=== PATIENT | female | born 1990 | race Caucasian/White ===

== ENCOUNTER 2020-12-18 03:28 | Inpatient (IN) | payer OTHER ==
[~2020-12-18] VITALS: Ht 167.6 cm; Wt 100.2 kg
[2020-12-19] MEDS ORDERED: OBTREX DHA COM1 EACH (08:53)
== END 2020-12-20 13:25 | disposition home or self-care (01) | DRG 807 ==
LOC: OB/GYN 03:28 → LDR 03:28 → OB/GYN 14:42
PROVIDERS: ADMIT Obstetrics & Gynecology; ATTEND Obstetrics & Gynecology
PROC: 10E0XZZ Delivery of Products of Conception, External Approach (ICD-10-PCS; principal; 2020-12-18)
PROC: 0KQM0ZZ Repair Perineum Muscle, Open Approach (ICD-10-PCS; 2020-12-18)
PROC: 4A1HXFZ Monitoring of Products of Conception, Cardiac Rhythm, External Approach (ICD-10-PCS; 2020-12-18)
DX: O42.013 Preterm premature rupture of membranes, onset of labor within 24 hours of rupture, third trimester (principal); O70.1 Second degree perineal laceration during delivery; Z37.0 Single live birth; Z3A.36 36 weeks gestation of pregnancy

== ENCOUNTER 2024-03-10 13:56 | Outpatient (CLI) | payer OTHER ==
[~2024-03-10 13:56] MED LIST: OBTREX DHA COM1 EACH
== END 2024-03-10 14:53 | disposition home or self-care (01) ==
LOC: NST 13:56
PROVIDERS: ATTEND Obstetrics & Gynecology Maternal & Fetal Medicine
DX: Z34.83 Encounter for supervision of other normal pregnancy, third trimester (principal)

== ENCOUNTER 2024-04-29 10:02 | Outpatient (CLI) | payer OTHER | END 2024-04-29 11:25 | disposition home or self-care (01) | LOC: NST 10:02 | PROVIDERS: ATTEND Obstetrics & Gynecology Maternal & Fetal Medicine | DX: Z34.83 Encounter for supervision of other normal pregnancy, third trimester (principal) ==

== ENCOUNTER 2024-04-29 13:51 | Inpatient (IN) | payer OTHER ==
[~2024-04-29] VITALS: Ht 167.6 cm; Wt 73.5 kg
[2024-05-03] VITALS (11 sets, daily range): BP systolic 97–136; BP diastolic 55–81
[2024-05-03] MEDS ORDERED: RINGERS SOLUTION,LACTATED 1,000 ML IV SCH (09:00)
[2024-05-03] MEDS ORDERED: OxyCODONE HCL/APAP UD (PERCOCET) PO PRN (09:15)
[2024-05-03] MEDS ORDERED: OXYTOCIN 1,000 ML IV SCH (09:15)
[2024-05-03] MEDS ORDERED: IBUprofen 400 MG TABLET PO PRN (09:15)
[2024-05-03 09:31] LABS: HEMATOCRIT 46.2 % (36.0-45.00); HEMOGLOBIN 15.2 g/dL (12.0-15.00); MEAN CELL VOLUME 85.3 fL (80.00-100.00); MEAN CORPUSCULAR HGB CONC 32.8 g/dl (32.0-36.0); PLATELET COUNT 303 K/uL (150-450); RED BLOOD COUNT 5.42 M/uL (4.00-6.00); RED CELL DISTRIBUTION WIDTH 13.7 % (11.5-14.5)
[2024-05-03 09:53] LABS: INR < 0.93; PARTIAL THROMBOPLASTIN TIME 25.9 SECONDS (22.0-34.0); PROTHROMBIN TIME 9.5 SECONDS (9.0-11.5)
[2024-05-03] MEDS ORDERED: ERYTHROMYCIN BASE OPHT 1GM EACH TUBE OP ONE (10:00)
[2024-05-03] MEDS ORDERED: CHLORHEXIDINE GLUCONATE 120 ML BOTTLE TOP ONE (10:00)
[2024-05-03] MEDS ORDERED: LIDOCAINE HCL 1% 10ML VIAL IJ ONE (10:00)
[2024-05-03 11:21] LABS: ALBUMIN 2.8 gm/dL (3.4-5.0); BILIRUBIN TOTAL 0.5 mg/dL (0.3-1.2); CALCIUM 9.1 mg/dL (8.5-10.1); CREATININE SERUM 0.72 mg/dL (0.55-1.02); GFR 94.48; GLOBULINA 4.3 G/DL (2.4-3.5); POTASSIUM 3.94 mEq/L (3.5-5.1); TOTAL PROTEIN 7.1 gm/dL (6.4-8.2)
[2024-05-04] VITALS: BP 97/63
[2024-05-04] MEDS ORDERED: FF) RHO(D) IMMUNE GLOBULIN (POM) IM ONE ×2 (09:00→09:15)
[2024-05-04 09:53] VITALS: BP 113/79
[2024-05-04 16:05] VITALS: BP 115/75
[2024-05-05 01:03] VITALS: BP 106/70
[2024-05-05] MEDS ORDERED: FF) RHO(D) IMMUNE GLOBULIN (POM) IM ONE (08:00)
[2024-05-05 08:47] VITALS: BP 104/71
== END 2024-05-05 12:47 | disposition home or self-care (01) | DRG 807 ==
LOC: LDR 05-03 08:31 → OB/GYN 05-03 08:31
PROVIDERS: Obstetrics & Gynecology; ADMIT Obstetrics & Gynecology Maternal & Fetal Medicine; ATTEND Obstetrics & Gynecology Maternal & Fetal Medicine
PROC: 10E0XZZ Delivery of Products of Conception, External Approach (ICD-10-PCS; principal; 2024-05-03)
PROC: 0UQG7ZZ Repair Vagina, Via Natural or Artificial Opening (ICD-10-PCS; 2024-05-03)
PROC: 4A1HXCZ Monitoring of Products of Conception, Cardiac Rate, External Approach (ICD-10-PCS; 2024-05-03)
DX: O71.4 Obstetric high vaginal laceration alone (principal); Z37.0 Single live birth; Z3A.37 37 weeks gestation of pregnancy; Z20.822 Contact with and (suspected) exposure to COVID-19